=== PATIENT | male | born 1980 | race Caucasian/White ===

== ENCOUNTER 2021-02-12 09:10 | Emergency (ER) | payer MEDICAID, SELFPAY ==
--- NOTE | ~2021-02-12 | XR_ITS ---
EXAMINATION: XR ANKLE, LEFT XR FOOT, LEFT CLINICAL INFORMATION: Fall, trauma, pain COMPARISON: None TECHNIQUE: The left ankle is imaged in 3 views. The left foot is imaged in 3 additional views. There are total of 6 views. FINDINGS: The ankle shows no fracture or dislocation. The malleoli are intact and the ankle mortise is symmetric. Talar dome shows no osteochondral lesion. The subtalar joint is normal. The retrocalcaneal recess is preserved. There are posterior and bulky plantar calcaneal spurs. Small spurring from the mid dorsal talus also present. The foot shows no fracture or dislocation or arthropathy. No arthropathy. Normal bony mineralization. XR/XR foot LT min 3V IMPRESSION: No fracture or dislocation left ankle, left foot. Posterior and plantar calcaneal spurs.
--- NOTE | ~2021-02-12 | CT_ITS ---
EXAMINATION: CT BRAIN AND CT CERVICAL SPINE WITHOUT CONTRAST. CLINICAL INFORMATION: Status post fall off the 6 weeks ago with syncope. COMPARISON: None TECHNIQUE: 5 mm thin axial and reformatted 2 min thin sagittal and coronal images of brain were obtained. Subsequently axial 3 mm thin and reformatted 2 minutes thin sagittal and coronal images of cervical spine were obtained. DLP 1372 FINDINGS: Brain: There is no acute intra-axial, extra-axial bleed, masses or midline shift. There is no acute infarction evolution. There is no acute infarct in evolution. There is no edema. The lateral ventricles are symmetrical in size and configuration without enlargement. Cervical spine: There is normal cervical lordosis. The vertebral heights and alignment is normal. There is loss of C5-C6, C6-C7 and C7-T1 disc heights with moderate ventral spondylosis. The craniovertebral junction and the C1-C2 alignment is normal. The prevertebral and paravertebral soft tissues are normal. No lytic or sclerotic process seen. The airway is widely patent. CT/CT cervical spine wo con IMPRESSION: No acute intracranial process seen. There is no acute fracture or dislocation in cervical spine. There are degenerative disc changes C4-C5, C5-C6, C6-C7 disc levels. No lytic or sclerotic process.
--- NOTE | ~2021-02-12 | CT_ITS ---
EXAMINATION: CT BRAIN AND CT CERVICAL SPINE WITHOUT CONTRAST. CLINICAL INFORMATION: Status post fall off the 6 weeks ago with syncope. COMPARISON: None TECHNIQUE: 5 mm thin axial and reformatted 2 min thin sagittal and coronal images of brain were obtained. Subsequently axial 3 mm thin and reformatted 2 minutes thin sagittal and coronal images of cervical spine were obtained. DLP 1372 FINDINGS: Brain: There is no acute intra-axial, extra-axial bleed, masses or midline shift. There is no acute infarction evolution. There is no acute infarct in evolution. There is no edema. The lateral ventricles are symmetrical in size and configuration without enlargement. Cervical spine: There is normal cervical lordosis. The vertebral heights and alignment is normal. There is loss of C5-C6, C6-C7 and C7-T1 disc heights with moderate ventral spondylosis. The craniovertebral junction and the C1-C2 alignment is normal. The prevertebral and paravertebral soft tissues are normal. No lytic or sclerotic process seen. The airway is widely patent. CT/CT head/brain wo con IMPRESSION: No acute intracranial process seen. There is no acute fracture or dislocation in cervical spine. There are degenerative disc changes C4-C5, C5-C6, C6-C7 disc levels. No lytic or sclerotic process.
--- NOTE | ~2021-02-12 | XR_ITS ---
EXAMINATION: XR HAND WRIST, LEFT CLINICAL INFORMATION: Fall, trauma, pain COMPARISON: None TECHNIQUE: The hand and wrist are imaged together in 3 large [id number] images. Additional navicular view of the wrist is included for a total of 4 views. FINDINGS: There is no fracture or dislocation. Bony mineralization is normal. The ulnar variance is neutral. There is no arthropathy. Pronator quadratus fat pad appears normal. XR/XR hand wrist LT IMPRESSION: No fracture or dislocation.
--- NOTE | ~2021-02-12 | XR_ITS ---
EXAMINATION: XR ANKLE, LEFT XR FOOT, LEFT CLINICAL INFORMATION: Fall, trauma, pain COMPARISON: None TECHNIQUE: The left ankle is imaged in 3 views. The left foot is imaged in 3 additional views. There are total of 6 views. FINDINGS: The ankle shows no fracture or dislocation. The malleoli are intact and the ankle mortise is symmetric. Talar dome shows no osteochondral lesion. The subtalar joint is normal. The retrocalcaneal recess is preserved. There are posterior and bulky plantar calcaneal spurs. Small spurring from the mid dorsal talus also present. The foot shows no fracture or dislocation or arthropathy. No arthropathy. Normal bony mineralization. XR/XR ankle LT min 3V IMPRESSION: No fracture or dislocation left ankle, left foot. Posterior and plantar calcaneal spurs.
[2021-02-12 09:19] VITALS: BP 166/112; PULSE 91; RESP 19; TEMP 36.6; O2SAT 99; BMI 37.6
--- NOTE | 2021-02-12 10:25 | ED.FALL ---
HPI - Fall General Chief Complaint: Fall Stated Complaint: fall/ leg wrist swollen dizzy Time Seen by Provider: 02/12/21 10:21 Source: patient Mode of arrival: ambulatory Limitations: no limitations History of Present Illness HPI Narrative: 40-year-old male came in after he fell off the ladder about 6 ft height 2 days ago landed on his left side, patient was seen at [facility] knee reportedly patient had left wrist x-ray, left ankle x-ray and both were negative, patient went home when he woke up this morning feeling lightheadedness, described near-syncope, patient was not prescribed anything for pain. Patient still complaining of left wrist/left foot/ankle pain. Related Data Previous Rx's Medication Instructions Recorded oxycodone 5 mg tablet 5 mg PO Q8H PRN #14 tab 02/12/21 Allergies Allergy/AdvReac Type Severity Reaction Status Date / Time No Known Allergies Allergy Unverified 11/08/19 16:18 Review of Systems Review of Systems: All other systems are reviewed and are negative Constitutional: Reports as per HPI and Reports no additional constitutional complaints Eyes: Reports as per HPI and Reports no additional eye complaints Reports system reviewed and no additional complaints, except as documented Cardiovascular: Reports as per HPI and Reports no additional cardiovascular complaints Respiratory: Reports as per HPI and Reports no additional respiratory complaints Gastrointestinal: Reports as per HPI and Reports no additional gastrointestinal complaints Genitourinary: Reports no additional female genitourinary complaints Musculoskeletal: Reports no additional musculoskeletal complaints Skin/Breast: Reports system reviewed and no additional complaints, except as docu Psychiatric: Reports no additional psychiatric complaints Endocrine: Reports no additional endocrine complaints Hematologic/Lymphatic: Reports no additional hematologic/lymphatic complaints Allergic/Immunologic: Reports no additional allergic/immunologic complaints Reports system reviewed and no additional complaints, except as documented and Reports Abnormal speech present [facility] Past Medical History Medical History (Updated 02/12/21 @ 10:37 by Aleksandra Kelly MD) HTN (hypertension) Social History Social History Advance Directives: No Advance Directives Information Provided: Yes Physical Exam Vital Signs: Vital Signs: Last Vital Signs Temp 98 F 02/12/21 09:19 Pulse 91 02/12/21 09:19 Resp 19 02/12/21 09:19 BP 166/112 H 02/12/21 09:19 Pulse Ox 99 02/12/21 09:19 BMI result Body Mass Index 37.6 Vital signs have been reviewed as appeared to be correct. Blood pressure elevated.Heart rate normal. Respiration rate normal. Temperature normal. Oxygen saturation normal. Appearance: Alert. Oriented X3. No acute distress. Head: Normal external exam. Normocephalic. Atraumatic. No Maki signs noted. No raccoon eyes noted Eyes: PERRLA. EOMI. Conjunctiva and sclera normal. Eyelids normal. ENT: TM's Normal. Pharynx normal. Uvula midline. Moist mucous membranes. No trismus noted. No drooling noted. No muffled voice noted. Neck: Normal inspection. Neck supple. FROM. No adenopathy. Thyroid Normal. No meningeal signs. No neck mass noted. CVS: Normal heart rate and rhythm. Heart sound normal. No murmurs noted. Pulses normal throughout. Respiratory: No respiratory distress. Painless inspiration. Breath sounds normal. No wheezes/rales/rhonchi noted. Chest nontender. No accessory muscle usage noted or decreased air movement noted. Abdomen: Soft and nontender. Bowel sounds normal in all 4 quadrants. No distention noted. No organomegaly noted. No visible injury noted. Back: No CVA tenderness. Full range of motion noted. Skin: Skin warm and dry. Normal skin color. Normal skin turgor. No rashes/lesions/lacerations noted. Extremities: Left wrist tenderness no step-off, no deformity, left ankle with mild tenderness, no step-off, no deformity. Neuro: Oriented X 3. Cranial nerve exam: II-XII are grossly intact No motor deficit. No sensory deficit. Reflexes normal. Course Course Course Narrative: Assessment and plan. 40-year-old male status post 6 ft ladder fall presented with left wrist/left ankle/left foot pain after fall with no fracture. Will discharge with better pain control. MDM - Fall Imaging Data Cervical spine CT: Radiologist's impression: There is no acute fracture or dislocation in cervical spine. There are degenerative disc changes C4-C5, C5-C6, C6-C7 disc levels. No lytic or sclerotic process.? Head CT: Attestation: I personally reviewed and interpreted this imaging study as follows: Radiologist's impression: No acute pathology. Left hand/wrist x-ray: Attestation: I personally reviewed and interpreted this imaging study as follows: Radiologist's impression: No acute fracture or dislocation Left foot x-ray: Radiologist's impression: No acute fracture or dislocation calcaneal spurs. ECG Data Attestation: I personally reviewed and interpreted this ECG as follows: Interpretation: Normal sinus rhythm at 85 beats per minute, normal axis deviation, normal intervals, no ST-T changes. Discharge Plan Discharge Clinical Impression: Fall from height of greater than 3 feet, Contusion of left wrist, Contusion of ankle, left, Near syncope Patient Disposition: Home, Self-Care Instructions: Contusion in Adults (ED) Prescriptions: New oxycodone 5 mg tablet 5 mg PO Q8H PRN (Reason: pain) Qty: 14 RF: 0 Referrals: Physician,Unknown J [Primary Care Provider] - 2 days
--- NOTE | 2021-02-12 10:32 | ECG_ITS ---
Test Reason : FALL Blood Pressure : / mmHG Vent. Rate : 085 BPM Atrial Rate : 085 BPM P-R Int : 154 ms QRS Dur : 084 ms QT Int : 362 ms P-R-T Axes : 023 016 011 degrees QTc Int : 430 ms Normal sinus rhythm Normal ECG No previous ECGs available Referred By: Aleksandra Kelly Electronically Signed By:JUANJO GALE
[2021-02-12] MEDS: oxyCODONE HCl Immed Release 5 MG TABLET 10 MG PO (10:46)
[2021-02-12 12:48] VITALS: BP 129/82; PULSE 80; RESP 17; O2SAT 98
== END 2021-02-12 12:57 | disposition home or self-care (01) ==
LOC: HO.ED 11:16
PROVIDERS: Emergency Provider Emergency Medicine
DX: R55 Syncope and collapse (principal); S60.212A Contusion of left wrist, initial encounter; S90.02XA Contusion of left ankle, initial encounter; I10 Essential (primary) hypertension; W11.XXXA Fall on and from ladder, initial encounter; Y93.9 Activity, unspecified; Y92.9 Unspecified place or not applicable; Y99.9 Unspecified external cause status
CPT/HCPCS: 70450; 72125; 73110; 73130; 73610; 73630; 93005; 99284

== ENCOUNTER 2023-04-28 11:44 | Emergency (ER) | payer MEDICAID, SELFPAY ==
[2023-04-28 12:05] VITALS: BP 177/117; PULSE 89; RESP 20; TEMP 36.8; O2SAT 98; BMI 33.9
--- NOTE | 2023-04-28 12:05 | ED_ITS ---
HPI - General Adult General Chief complaint: Nausea/Vomiting/Diarrhea Stated complaint: abd pain/ nausea Related Data Previous Rx's Medication Instructions Recorded oxycodone 5 mg tablet 5 mg PO Q8H PRN pain #14 tabs 02/12/21 Allergies Allergy/AdvReac Type Severity Reaction Status Date / Time No Known Allergies Allergy Verified 04/28/23 12:07 [facility], [facility] Past Medical History Medical History (Updated 04/28/23 @ 19:49 by Ni Pedro NP) HTN (hypertension) Physical Exam ED Vital Signs: Vital Signs - 24 hr 04/28/23 12:05 Temperature 98.3 F Pulse Rate 89 Respiratory Rate 20 Blood Pressure 177/117 H Pulse Oximetry 98 Oxygen Delivery Method Room Air BMI result Body Mass Index 33.9 Course Course Course Narrative: This is a rapid medical exam: Additional HPI, ROS, PE not included below will be deferred to primary provider. Patient is a 42-year-old male presenting to the ED with complaint of nausea, vomiting, and diarrhea since Tuesday. Reports fever tuesday night, none since. Has only been able to tolerate PO fluids, no food. Complains of epigastric pain. Has not been taking his BP medication since Tuesday due to vomiting. Plan: labs, viral swabs Medical Decision Making Lab Data 04/28/23 12:18 04/28/23 12:18 Labs: Lab Results 04/28/23 Range/Units 12:18 WBC 5.6 (4.8-10.8) X10*3/uL RBC 4.90 (4.60-5.80) X10*6/uL Hgb 15.0 (14.0-18.0) g/dl Hct 41.9 L (42.0-52.0) % MCV 85.5 (80.0-98.0) fL MCH 30.6 (27.0-33.0) pg MCHC 35.8 (31.0-36.0) g/dl RDW 12.8 (11.0-16.0) % Plt Count 193 (160-400) X10*3/uL MPV 8.7 L (9.4-12.4) fL Immature Gran % (Auto) 0.2 (0.0-0.4) % Neut % (Auto) 53.4 (45-73) % Lymph % (Auto) 32.1 (20-40) % [place] % (Auto) 13.0 H (2-11) % Eos % (Auto) 0.9 (0-4) % Baso % (Auto) 0.4 (0-2) % Lymph # (Auto) 1.8 (1.2-4.9) X10*3/uL [place] # (Auto) 0.7 (0.1-1.2) X10*3/uL Eos # (Auto) 0.1 (0.0-0.4) X10*3/uL Baso # (Auto) 0.0 (0.0-0.2) X10*3/uL Abs Immat Gran (auto) 0.01 (0.00-0.03) X10*3/uL Absolute Neuts (auto) 3.0 (2.0-8.3) x10*3/uL Absolute Nucleated RBC 0.000 (0.0-0.012) X10*3/uL Nucleated RBC % (auto) 0.0 (0.0-0.2) /100WBC Sodium 139 (135-145) mmol/L Potassium 4.0 (3.3-5.1) mmol/L Chloride 104 (96-108) mmol/L Carbon Dioxide 27 (22-29) mmol/L Anion Gap 12 (12-20) BUN 11 (9-16) mg/dL Creatinine 0.81 (0.5-1.4) mg/dL Estim Creat Clear Calc 142.6 Estimated GFR > 60 Random Glucose 96 (60-115) mg/dL Calcium 9.1 (8.4-10.2) mg/dL Magnesium 2.1 (1.6-2.6) mg/dL Total Bilirubin 0.7 (0.0-1.0) mg/dL AST 25 (5-37) U/L ALT 25 (0-40) U/L Alkaline Phosphatase 63 (39-117) U/L Total Protein 6.8 (6.5-8.0) g/dL Albumin 4.3 (3.5-5.0) g/dL Influenza Type A (PCR) NEGATIVE (Negative) Influenza Type B (PCR) NEGATIVE (Negative) RSV RNA Qual (PCR) NEGATIVE (Negative) SARS-CoV-2 RNA (RT-PCR) NEGATIVE (Negative) Discharge Plan Discharge Clinical Impression: Nausea & vomiting Patient Disposition: Left W/O Completing Treatment Prescriptions: No Action oxycodone 5 mg tablet 5 mg PO Q8H PRN (Reason: pain) Qty: 14 0RF
[2023-04-28 12:23] LABS: MANUAL DIFF FLAG NO
[2023-04-28 12:24] LABS: Basophils Percent Auto 0.4 % (0-2); Eosinophils Absolute Auto 0.1 X10*3/uL (0.0-0.4); Eosinophils Percent Auto 0.9 % (0-4); Hematocrit 41.9 % (42.0-52.0); Imm Gran Abs Auto 0.01 X10*3/uL (0.00-0.03); Imm Gran Pct Auto 0.2 % (0.0-0.4); Lymphocytes Absolute Auto 1.8 X10*3/uL (1.2-4.9); Lymphocytes Percent Auto 32.1 % (20-40); Mean Corpuscular HGB Conc 35.8 g/dl (31.0-36.0); Mean Corpuscular Hemoglobin 30.6 pg (27.0-33.0); Mean Corpuscular Volume 85.5 fL (80.0-98.0); Mean Platelet Volume 8.7 fL (9.4-12.4); Monocytes Absolute Auto 0.7 X10*3/uL (0.1-1.2); Neutrophils Percent Auto 53.4 % (45-73); Platelet Count 193 X10*3/uL (160-400); Red Cell Distribution Width 12.8 % (11.0-16.0); White Blood Count 5.6 X10*3/uL (4.8-10.8)
[2023-04-28 12:40] LABS: Alanine Aminotransferase 25 U/L (0-40); Albumin Level 4.3 g/dL (3.5-5.0); Alkaline Phosphatase 63 U/L (39-117); Anion Gap 12 (12-20); Aspartate Amino Transferase 25 U/L (5-37); Bilirubin Total 0.7 mg/dL (0.0-1.0); Blood Urea Nitrogen 11 mg/dL (9-16); Calcium 9.1 mg/dL (8.4-10.2); Carbon Dioxide 27 mmol/L (22-29); Chloride 104 mmol/L (96-108); Creatinine Clr Calc Pharmacy 142.6; Estimated Glomerular Filt Rate > 60; Glucose Random 96 mg/dL (60-115); Magnesium 2.1 mg/dL (1.6-2.6); Sodium 139 mmol/L (135-145); Total Protein 6.8 g/dL (6.5-8.0)
[2023-04-28 13:09] LABS: Influenza A PCR NEGATIVE (Negative); Influenza B PCR NEGATIVE (Negative); Resp Syncy Virus RNA Qual PCR NEGATIVE (Negative); SARS COV2 PCR INHOUSE NEGATIVE (Negative)
== END 2023-04-28 20:32 | disposition left against medical advice (07) ==
PROVIDERS: Registered Nurse Emergency; Emergency Provider Emergency Medicine; PCP Nurse Practitioner Adult Health
DX: R11.2 Nausea with vomiting, unspecified (principal); Z11.52 Encounter for screening for COVID-19; Z20.822 Contact with and (suspected) exposure to COVID-19; Z79.899 Other long term (current) drug therapy
CPT/HCPCS: 0241U; 36415; 80053; 83735; 85025; 99281; 99283

== ENCOUNTER 2023-08-10 15:59 | Emergency (ER) | payer MEDICAID, SELFPAY ==
--- NOTE | ~2023-08-10 | CT_ITS ---
EXAMINATION: CT ABDOMEN AND PELVIS WITHOUT CONTRAST CLINICAL INFORMATION: Flank pain with difficulty urinating COMPARISON: None available. TECHNIQUE: Multidetector volumetric imaging was performed from the superior aspect of the liver through the pubic symphysis. Sagittal and coronal reformatted images were obtained on the technologist's workstation. This CT examination was performed using dose optimization techniques as appropriate, variously including the following: *Automated exposure control *Adjustment of mA and/or kV according to patient size (this includes techniques or standardized protocols for targeted exams where dose is matched to indication/reason for exam; i.e. extremities or head) *Use of iterative reconstruction technique DLP: 625 mGy-cm FINDINGS: LUNG BASES: Bibasilar atelectasis and bronchial thickening is noted. No infiltrates, effusions or lung masses. LIVER, GALLBLADDER, AND BILIARY TREE: The liver is mildly enlarged at 18 cm in greatest length. Attenuation and shape is normal. No focal hepatic lesion or biliary ductal dilatation is present. The gallbladder is unremarkable with no evidence of radiopaque gallstones, gallbladder wall thickening, or obvious pericholecystic inflammatory changes. PANCREAS: Unremarkable. SPLEEN: Spleen is enlarged at 13.7 cm ADRENAL GLANDS: Unremarkable. KIDNEYS AND URETERS: The kidneys are normal in size, shape, and attenuation. There is mild right-sided hydronephrosis and dilatation of the right ureter down to the level of a mildly obstructing distal ureteral calculus measuring 2 mm in size. Attenuation coefficient is 305 Hounsfield units. No hydronephrosis, hydroureter, or additional calculi seen. No perinephric stranding. BLADDER: Unremarkable. GASTROINTESTINAL TRACT: The small and large bowel are unremarkable. The appendix is not seen seen. ABDOMINAL WALL: Small bilateral inguinal hernias are seen containing only fat. LYMPH NODES: Normal. VASCULAR: Unremarkable. PELVIC VISCERA: There is mild enlargement of the prostate. Asymmetric calcification seen on the left. Seminal vesicles appear normal. OSSEOUS STRUCTURES: Unremarkable. CT/CT abdomen pelvis wo IV con IMPRESSION: 1. Mildly obstructing 2 mm distal right ureteral calculus. 2. Incidental note made of mild hepatosplenomegaly, small bilateral inguinal hernias and mild BPH. Fleischner guidelines were followed.
[2023-08-10 16:03] VITALS: BP 179/114; PULSE 88; RESP 24; O2SAT 100; BMI 35.0
--- NOTE | 2023-08-10 16:04 | ED.GENADULT ---
HPI - General Adult General Chief complaint: Abdominal Pain Stated complaint: possible kidney stone Time Seen by Provider: 08/10/23 16:16 Related Data Previous Rx's ?Medication ?Instructions ?Recorded ondansetron 4 mg disintegrating 4 mg PO Q6-8H PRN nausea and 08/10/23 tablet vomiting #7 tabs tamsulosin 0.4 mg capsule (Flomax) 0.4 mg PO BEDTIME #14 caps 08/19/23 Allergies Allergy/AdvReac Type Severity Reaction Status Date / Time No Known Allergies Allergy Verified 08/19/23 10:40 [facility] Past Medical History Medical History HTN (hypertension) Physical Exam ED Vital Signs: BMI result Body Mass Index 35.0 Course Course Course Narrative: This is an RME done by QUANG Santiago: Additional HPI, ROS, PE not included below will be deferred to primary provider. 43-year-old male presents with back pain radiating to abdomen, very uncomfortable, is having difficulties with urination. No history of kidney stones. Patient reports severe pain 11/30. Appearance: Alert.? Oriented X3.? No acute cardiopulmonary distress distress.? Cant still very uncomfortable Head: Normocephalic, atraumatic, no step-offs or deformities Neck: Normal inspection.? Neck supple.? CVS: Pulses normal.? Respiratory: No respiratory distress.? Abdomen: Soft and nontender.? Skin: ? Normal skin color. Extremities: 5/5 strength to bilateral upper and lower extremities Back: No midline tenderness, no C-spine tenderness, full range of motion, No CVA tenderness bilaterally Neuro: Oriented X 3.? No motor deficit.? No sensory deficit. Medications Administered Discontinued Medications Generic Name Dose Route Start Last Admin Trade Name Freq PRN Reason Stop Dose Admin Sodium Chloride 1,000 mls @ 999 mls/hr 08/10/23 16:15 08/10/23 16:17 Ns IV 08/10/23 17:15 999 mls/hr .Q1H1M MARYANA Administration Ketorolac Tromethamine 30 mg 08/10/23 16:05 08/10/23 16:17 Ketorolac Tromethamine 15 Mg/Ml Vial IVPUSH 08/10/23 16:06 30 mg ONCE ONE Administration Morphine Sulfate 4 mg 08/10/23 16:05 08/10/23 16:17 Morphine Sulfate 4 Mg/Ml Cartridge IVPUSH 08/10/23 16:06 4 mg ONCE ONE Administration Protocol Ondansetron HCl 4 mg 08/10/23 16:07 08/10/23 16:17 Ondansetron Hcl 4 Mg/2 Ml Vial IVPUSH 08/10/23 16:08 4 mg ONCE ONE Administration Tamsulosin HCl 0.4 mg 08/10/23 16:05 08/10/23 16:17 Tamsulosin Hcl 0.4 Mg Capsule PO 08/10/23 16:06 0.4 mg ONCE ONE Administration Medical Decision Making Lab Data 08/10/23 16:13 08/10/23 16:13 Labs: Lab Results 08/10/23 Range/Units 16:13 WBC 14.7 H (4.8-10.8) X10*3/uL RBC 5.08 (4.60-5.80) X10*6/uL Hgb 15.6 (14.0-18.0) g/dl Hct 43.7 (42.0-52.0) % MCV 86.0 (80.0-98.0) fL MCH 30.7 (27.0-33.0) pg MCHC 35.7 (31.0-36.0) g/dl RDW 13.0 (11.0-16.0) % Plt Count 296 D (160-400) X10*3/uL MPV 9.1 L (9.4-12.4) fL Immature Gran % (Auto) 0.3 (0.0-0.4) % Neut % (Auto) 68.3 (45-73) % Lymph % (Auto) 22.5 (20-40) % [place] % (Auto) 8.1 (2-11) % Eos % (Auto) 0.3 (0-4) % Baso % (Auto) 0.5 (0-2) % Lymph # (Auto) 3.3 (1.2-4.9) X10*3/uL [place] # (Auto) 1.2 (0.1-1.2) X10*3/uL Eos # (Auto) 0.1 (0.0-0.4) X10*3/uL Baso # (Auto) 0.1 (0.0-0.2) X10*3/uL Abs Immat Gran (auto) 0.04 H (0.00-0.03) X10*3/uL Absolute Neuts (auto) 10.0 H (2.0-8.3) x10*3/uL Absolute Nucleated RBC 0.000 (0.0-0.012) X10*3/uL Nucleated RBC % (auto) 0.0 (0.0-0.2) /100WBC Sodium 143 (135-145) mmol/L Potassium 4.1 (3.3-5.1) mmol/L Chloride 105 (96-108) mmol/L Carbon Dioxide 28 (22-29) mmol/L Anion Gap 14 (12-20) BUN 17 H (9-16) mg/dL Creatinine 1.18 (0.5-1.4) mg/dL Estim Creat Clear Calc 95.4 Estimated GFR > 60 Random Glucose 127 H (60-115) mg/dL Calcium 9.8 D (8.4-10.2) mg/dL Total Bilirubin 0.7 (0.0-1.0) mg/dL AST 22 (5-37) U/L ALT 25 (0-40) U/L Alkaline Phosphatase 70 (39-117) U/L Total Protein 7.7 (6.5-8.0) g/dL Albumin 4.8 (3.5-5.0) g/dL Discharge Plan Discharge Clinical Impression: Calculus of distal right ureter Patient Disposition: Home, Self-Care Instructions: Low Oxalate Diet (ED), Ureteral Stones (ED) Additional Instructions: Drink plenty of fluids Diet as advised Pain medication Flomax until you have pain Follow with urologist Prescriptions: New ondansetron 4 mg tablet,disintegrating 4 mg PO Q6-8H PRN (Reason: nausea and vomiting) Qty: 7 0RF No Action tamsulosin [Flomax] 0.4 mg capsule 0.4 mg PO BEDTIME Qty: 14 0RF Referrals: Portillo Obregon MD [Physician] - 1 week Interventions: ED Discharge Assessment Last Done: 08/10/23 19:09 Discharge Date/Time: 08/10/23 19:11 Print Language: Serbian
[2023-08-10 16:17] VITALS: RESP 33
[2023-08-10 16:17] LABS: MANUAL DIFF FLAG NO
[2023-08-10] MEDS: ondansetron HCL 4 MG/2 ML VIAL IVPUSH (16:17)
[2023-08-10] MEDS: Ketorolac Tromethamine 15 MG/ML VIAL 30 MG IVPUSH (16:17)
[2023-08-10] MEDS: Tamsulosin HCL 0.4 MG CAPSULE PO (16:17)
[2023-08-10] MEDS: Morphine Sulfate 4 MG/ML CARTRIDGE IVPUSH (16:17)
[2023-08-10] MEDS: 0.9 % Sodium Chloride 1,000 ML 999 ML IV (16:17)
[2023-08-10 16:19] LABS: Basophils Absolute Auto 0.1 X10*3/uL (0.0-0.2); Basophils Percent Auto 0.5 % (0-2); Eosinophils Absolute Auto 0.1 X10*3/uL (0.0-0.4); Eosinophils Percent Auto 0.3 % (0-4); Hematocrit 43.7 % (42.0-52.0); Hemoglobin 15.6 g/dl (14.0-18.0); Imm Gran Abs Auto 0.04 X10*3/uL (0.00-0.03); Imm Gran Pct Auto 0.3 % (0.0-0.4); Lymphocytes Absolute Auto 3.3 X10*3/uL (1.2-4.9); Lymphocytes Percent Auto 22.5 % (20-40); Mean Corpuscular HGB Conc 35.7 g/dl (31.0-36.0); Mean Corpuscular Hemoglobin 30.7 pg (27.0-33.0); Mean Platelet Volume 9.1 fL (9.4-12.4); Monocytes Absolute Auto 1.2 X10*3/uL (0.1-1.2); Monocytes Percent Auto 8.1 % (2-11); Neutrophils Percent Auto 68.3 % (45-73); Platelet Count 296 X10*3/uL (160-400); Red Blood Count 5.08 X10*6/uL (4.60-5.80); White Blood Count 14.7 X10*3/uL (4.8-10.8)
[2023-08-10 16:32] LABS: Alanine Aminotransferase 25 U/L (0-40); Albumin Level 4.8 g/dL (3.5-5.0); Alkaline Phosphatase 70 U/L (39-117); Anion Gap 14 (12-20); Aspartate Amino Transferase 22 U/L (5-37); Bilirubin Total 0.7 mg/dL (0.0-1.0); Blood Urea Nitrogen 17 mg/dL (9-16); Calcium 9.8 mg/dL (8.4-10.2); Carbon Dioxide 28 mmol/L (22-29); Chloride 105 mmol/L (96-108); Creatinine Clr Calc Pharmacy 95.4; Estimated Glomerular Filt Rate > 60; Glucose Random 127 mg/dL (60-115); Potassium 4.1 mmol/L (3.3-5.1); Sodium 143 mmol/L (135-145); Total Protein 7.7 g/dL (6.5-8.0)
[2023-08-10 18:04] VITALS: BP 142/81; PULSE 80; RESP 12; TEMP 36.8; O2SAT 99
[2023-08-10 19:09] VITALS: BP 142/81; PULSE 80; RESP 12; TEMP 36.8; O2SAT 99
== END 2023-08-10 19:11 | disposition home or self-care (01) ==
PROVIDERS: Physician Assistant; Emergency Provider Internal Medicine; PCP Nurse Practitioner Adult Health
DX: R30.0 Dysuria (principal); R33.9 Retention of urine, unspecified; R10.9 Unspecified abdominal pain; M54.50 Low back pain, unspecified; Z79.899 Other long term (current) drug therapy
CPT/HCPCS: 36415; 51798; 74176; 80053; 85025; 96374; 96375; 99284; 99285; J1885; J2270; J2405

== ENCOUNTER 2023-08-19 10:29 | Outpatient (AMB) | payer OTHER, MEDICAID, SELFPAY ==
--- NOTE | 2023-08-19 10:37 | MHC.OFFVIS ---
Intake Visit Reasons: ER follow up/kidney stone Intake Note: New patient is present for [facility] [place] Follow up For Kidney stones Urology Med: Tamsulosin (Finished) Antibiotic Allergies: None Blood Thinner: None Patient today states that he feels a lot better. He has finished Tamsulosin that was prescribed at ER visit. Mechanical System Technician Required: No Allergies No Known Allergies Allergy (Verified 08/19/23 10:40) Medication List - Last Reconciled 08/19/23 by Portillo Obregon MD ondansetron 4 mg PO Q6-8H PRN tamsulosin (Flomax) 0.4 mg PO BEDTIME HPI Comments Details: Mauro is a pleasant male. He is a patient of . Seen for the following urologic conditions - nephrolithiasis Recent evaluation at emergency room Imaging had shown 3 mm distal right ureteric stone No prior history of stones Positive family history Works outside Is unsure if stone has passed but has not had pain since Tuesday Will refill Flomax Three month follow-up renal ultrasound [facility] Medical History HTN (hypertension) Review of Systems Const Denies chills and Denies fever(s) Card Reports no additional complaints and Denies syncope Resp Denies cough GI Denies abdominal pain and Denies heartburn Reports as per HPI and Denies change in libido Neuro Denies syncope Psych Denies change in libido Endo Denies change in libido Physical Exam Const General: cooperative, healthy appearing, comfortable and no acute distress Orientation/consciousness: patient oriented x3 HEENT Face and sinus: Yes normal facial exam Mouth: moist mucous membranes Neck Neck: Yes normal visual inspection, Yes full ROM and Yes trachea midline Chest Chest palpation & inspection: normal inspection of the chest Resp Effort & Inspection: normal respiratory effort, able to speak in complete sentences and no respiratory distress GI Inspection: Yes normal to inspection Back/Spine/Pelvis Cervical Spine: normal cervical lordosis Thoracic/Lumbar Spine: thoracic and lumbar spine normal to inspection Skin General skin exam: no rashes or lesions noted Neuro General: patient oriented x3, gait normal, tone normal and moves all extremities Extrem General: Yes normal to inspection and Yes capillary refill normal Assessment & Plan Assessment & Plan (1) Nephrolithiasis: Code(s): N20.0 - Calculus of kidney Category: Medical Plan Three-month follow-up ultrasound Orders: Orders US renal BI 3 Months N20.0 - Calculus of kidney Medications: Refilled tamsulosin (Flomax) 0.4 mg PO BEDTIME 14 caps 0RF N20.0 - Calculus of kidney Discontinued oxycodone Discontinued Reason: Patient Refused 5 mg PO Q8H PRN 14 tabs 0RF pain oxycodone Partial Fill upon patient request. Discontinued Reason: Patient Completed Course 5 mg PO Q6H PRN 20 tabs 0RF pain prednisone Discontinued Reason: Patient Completed Course 5 mg PO DAILY 5 days 5 tabs 0RF naproxen Discontinued Reason: Patient Completed Course 500 mg PO BID 14 days 28 tabs 0RF Patient Instructions: Imaging studies, laboratory and physical exam results were discussed and reviewed in detail. No major barriers to patient understanding were identified. An opportunity to ask questions regarding the treatment plan was provided. All questions were answered. The patient expressed understanding and agreement with the above treatment plan. The patient is aware they should contact our office by phone for worsening of their current condition or the appearance of new urologic symptoms. Compliance is encouraged with any medications and followup testing that is ordered. It is a privilege to participate in the urologic care of your patient. If you have any questions or concerns regarding treatment for the above conditions, or other urologic issues, please do not hesitate to contact me. The office telephone contact is [phone]. This note is constructed using voice recognition software. While every effort has been made to ensure accuracy water and fire technician errors may have been included. Yours sincerely, Dr Portillo Obregon MD, [facility] - Urology Providers of Expert, Compassionate Care for the Genitourinary System Coding Level of Care Code New Pt Level 4 (01419) Diagnoses Nephrolithiasis N20.0
== END 2023-08-19 10:56 | disposition home or self-care (01) ==
PROVIDERS: PCP Nurse Practitioner Adult Health; Visit Provider Urology
DX: N20.0 Calculus of kidney (principal)
CPT/HCPCS: 99203

== ENCOUNTER → 2023-08-19 10:29 | Outpatient (BNVA) | payer OTHER, MEDICAID, SELFPAY | PROVIDERS: PCP Nurse Practitioner Adult Health; Visit Provider Urology | DX: N20.0 Calculus of kidney (principal) | CPT/HCPCS: 99202 ==